=== PATIENT | male | born 1960 | race African-American/Black ===

== ENCOUNTER 2021-08-25 08:23 | Emergency (ER) | payer OTHER ==
[~2021-08-25] VITALS: Ht 175.3 cm; Wt 84.0 kg
[2021-08-25 08:28] VITALS: BP 146/101
== END 2021-08-25 10:07 | disposition home or self-care (01) ==
LOC: ER 08:23
DX: R33.9 Retention of urine, unspecified (principal)
CPT/HCPCS: 51702; 99284